=== PATIENT | female | born 1990 | race Caucasian/White ===

== ENCOUNTER 2020-11-22 21:57 | Observation (INO) ==
[2020-11-23] MEDS ORDERED: SODIUM CHLORIDE 0.9% 1000ML 1,000 ML IV ONE (00:18)
[2020-11-23] MEDS ORDERED: AMPICILLIN/SULBACTAM SOD 3,000 MG in 0.9 % SODIUM CHLORIDE 100 ML IV STA (00:18)
[2020-11-23] MEDS ORDERED: MoRPHine SULFATE 4 MG/ML 1 ML CARP\\VIAL IV STA ×2 (00:18→02:22)
[2020-11-23 00:48] LABS: Basophils # (auto) 0.01 K/uL (0-0.2); Basophils % (auto) 0.1 %; Eosinophils % (auto) 0.6 %; Hematocrit (blood only) 32.9 % (37-47); Hemoglobin 10.8 g/dL (12.0-16.0); Immature Granulocytes # (auto) 0.03 K/uL (0.00-0.02); Immature Granulocytes % (auto) 0.2 %; Lymphocytes # (auto) 1.84 K/uL (1.2-3.4); Lymphocytes % (auto) 11.8 %; Mean Corpuscular Hemoglobin 27.8 pg (25-34); Mean Corpuscular Hgb Conc 32.8 g/dL (32-36); Mean Corpuscular Volume 84.8 fL (80-100); Mean Platelet Volume 9.3 fL (7.4-10.4); Monocytes % (auto) 8.3 %; Neutrophils # (auto) 12.37 K/uL (1.4-6.5); Platelet Count 339 K/uL (130-400); RDW Coefficient of Variation 15.8 % (11.5-14.5); RDW Standard Deviation 49.2 fL (36.4-46.3); Red Blood Count 3.88 M/uL (4.2-5.4); White Blood Count 15.65 K/uL (4.8-10.8)
[2020-11-23 01:06] LABS: Albumin Level 4.2 gm/dl (3.4-5.0); BUN Creatinine Ratio 20.8 (10-20); Creatinine Clr Calc Pharmacy 166.8 ml/min; Est GFR (African American) 149.6 ml/min; Est GFR (Non-African American) 129.1 ml/min; Potassium 3.6 mmol/L (3.5-5.1)
[2020-11-23 01:08] LABS: Albumin Globulin Ratio 1.2 (0.9-2); Bilirubin,Total 0.5 mg/dl (0.2-1); Globulin 3.6 gm/dl (2.5-4.0); Total Protein 7.8 gm/dl (6.4-8.2)
[2020-11-23] MEDS ORDERED: OPTIRAY 320 100ml IV ONE (02:01)
[2020-11-23] MEDS ORDERED: ONDANSETRON INJ 2 MG/ML 2 ML VIAL IV STA (03:17)
--- NOTE | 2020-11-23 03:32 | History & Physical Report ---
Date of Service November 23, 2020 Assessment & Plan (1) Dental abscess: Plan: Dental abscess/cellulitis and abscess of left side of face and mandible- NPO continue Unasyn 3 g IV every 6 hours begun in ED famotidine 20 mg IV every 12 hours acetaminophen 1 g IV every 8 hours as needed mild pain or fever Zofran 4 mg IV every 6 hours as needed NSS + KCl 20 mEq at 80 mils per hour consult maxillofacial surgery Dr. Gruber (2) Cellulitis and abscess of face: Plan: See above History of Present Illness Chief Complaint: The patient presents to the emergency department with worsening painful swelling of the left side of her face over the past 24 hours Primary Care Provider: NO PCP The patient is a 30-year-old female with no significant past medical history who presents to the emergency department as noted above. Work-up in the emergency department included a CT scan of the face which showed cellulitis with an abscess. Past Med/Surg History Social History Smoking Status: Former smoker Feels Safe at Home: Yes Review of Systems Review of Systems: The patient denies chest pain, palpitations, shortness of breath, dyspnea on exertion, cough, lower extremity swelling, sore throat, fevers, chills, sweats, diarrhea , constipation, abdominal pain, pelvic pain, blood in urine or stool, dysuria, urinary frequency or urgency, lightheadedness, dizziness, headache, memory loss, loss of consciousness, rash, abnormal bruising or bleeding, imbalance, focal or generalized weakness, numbness or tingling in arms or legs, generalized arthralgias or myalgias, back or neck pain, or night sweats. The review of systems is otherwise negative other than for that already noted above, and at least 10 systems have been reviewed. Physical Exam Physical Exam: The patient is awake, alert and oriented 3, well developed and well nourished, normocephalic and atraumatic, lying in bed and in no acute distress. HEENT--PERRL, EOMI, mucous membranes and oropharynx dry. Large swelling left lateral mandibular area Neck--supple. No JVD. No bruits. Thyroid normal, trachea midline, no adenopathy. Heart--normal S1 and S2. No murmurs, rubs or gallops. Lungs--clear bilaterally, no respiratory distress, no accessory muscle use. Abdomen--normal bowel sounds and soft. Nontender. Nondistended, no hernias or masses, no organomegaly. Extremities--no cyanosis or clubbing. No edema. Dermatologic--normal skin turgor, normal color, no abnormal lymph nodes, no rash. Neurologic--cranial nerves II through XII grossly intact. Rheumatologic--normal range of motion. Psychiatric--normal affect. Results & Data Results & Data ([facility]) Vital Signs (Past 12 Hours) Vital Signs Temp Pulse Pulse Resp BP BP Pulse Ox 11/23/20 03:26 77 17 127/82 98 11/23/20 02:31 103 H 134/97 98 11/23/20 02:01 82 130/83 100 11/23/20 00:50 65 99 11/22/20 22:03 97.5 F L 105 H 18 143/89 H 99 Laboratory Results Laboratory Results WBC 15.65 K/uL (4.8-10.8) H 11/23/20 00:31 RBC 3.88 M/uL (4.2-5.4) L 11/23/20 00:31 Hgb 10.8 g/dL (12.0-16.0) L 11/23/20 00:31 Hct 32.9 % (37-47) L 11/23/20 00:31 MCV 84.8 fL (80-100) 11/23/20 00:31 MCH 27.8 pg (25-34) 11/23/20 00:31 MCHC 32.8 g/dL (32-36) 11/23/20 00:31 RDW Std Deviation 49.2 fL (36.4-46.3) H 11/23/20 00:31 RDW Coeff of Hugo 15.8 % (11.5-14.5) H 11/23/20 00:31 Plt Count 339 K/uL (130-400) 11/23/20 00:31 MPV 9.3 fL (7.4-10.4) 11/23/20 00:31 Immature Gran % (Auto) 0.2 % 11/23/20 00:31 Neut % (Auto) 79.0 % 11/23/20 00:31 Lymph % (Auto) 11.8 % 11/23/20 00:31 Luna % (Auto) 8.3 % 11/23/20 00:31 Eos % (Auto) 0.6 % 11/23/20 00:31 Baso % (Auto) 0.1 % 11/23/20 00:31 Neut # (Auto) 12.37 K/uL (1.4-6.5) H 11/23/20 00:31 Lymph # (Auto) 1.84 K/uL (1.2-3.4) 11/23/20 00:31 Luna # (Auto) 1.30 K/uL (0.11-0.59) H 11/23/20 00:31 Eos # (Auto) 0.10 K/uL (0-0.5) 11/23/20 00:31 Baso # (Auto) 0.01 K/uL (0-0.2) 11/23/20 00:31 Immature Gran # (Auto) 0.03 K/uL (0.00-0.02) H 11/23/20 00:31 Sodium 140 mmol/L (136-145) 11/23/20 00:31 Potassium 3.6 mmol/L (3.5-5.1) 11/23/20 00:31 Chloride 106 mmol/L (98-107) 11/23/20 00:31 Carbon Dioxide 28 mmol/L (21-32) 11/23/20 00:31 Anion Gap 6.0 (3-11) 11/23/20 00:31 BUN 11 mg/dl (7-18) 11/23/20 00:31 Creatinine 0.52 mg/dl (0.6-1.2) L 11/23/20 00:31 Est Cr Clr Drug Dosing 166.8 ml/min 11/23/20 00:31 Est GFR ( Amer) 149.6 ml/min 11/23/20 00:31 Est GFR (Non-Af Amer) 129.1 ml/min 11/23/20 00:31 BUN/Creatinine Ratio 20.8 (10-20) H 11/23/20 00:31 Glucose 97 mg/dl (70-99) 11/23/20 00:31 Lactate 0.8 mmol/L (0.4-2.0) 11/23/20 00:31 Calcium 9.0 mg/dl (8.5-10.1) 11/23/20 00:31 Total Bilirubin 0.5 mg/dl (0.2-1) 11/23/20 00:31 AST 14 U/L (15-37) L 11/23/20 00:31 ALT 18 U/L (12-78) 11/23/20 00:31 Alkaline Phosphatase 39 U/L (45-117) L 11/23/20 00:31 Total Protein 7.8 gm/dl (6.4-8.2) 11/23/20 00:31 Albumin 4.2 gm/dl (3.4-5.0) 11/23/20 00:31 Globulin 3.6 gm/dl (2.5-4.0) 11/23/20 00:31 Albumin/Globulin Ratio 1.2 (0.9-2) 11/23/20 00:31 COVID-19 Eval Order Covid19 at [facility] 11/23/20 03:00 SARS-CoV-2 (PCR) NEGATIVE (Negative) 11/23/20 03:00 Diagnostic Findings [facility] Patient: ANGELICA APPLE (Female) : 89 Status: ER Date: 11/23/20 02:03 Room #: History: PAIN AND SWELLING AT LEFT SIDE OF FACE, ABSCESS Slices: [phone] Priors: Tech: Lorenzo Tirado @ [phone] Exams: CT FACIAL Contrast: IV Amt: 93 ML OPTIRAY 320 Accession Numbers: [id number] Referring Physician: REFERRED SELF Preliminary Findings Only See Final Report For Complete Findings CT FACIAL: No prior exam for comparison. There is soft tissue swelling along the left mandible. There are no destructive changes of the mandible to suggest osteomyelitis. There is lucency surrounding the root of a molar tooth which may indicate a tooth abscess. There is a fluid collection at the left anterior mandible measuring approximately 1.8 cm x 0.8 cm with mild wall enhancement suggestive of early abscess. Bilateral submandibular lymphadenopathy. Mild lymphadenopathy in the carotid sheath region. Bilateral globes and intraconal region of the orbits are normal. Normal bilateral paranasal sinuses and mastoids. Radiologist: Priscila Jones MD Study ready at 02:06 and initial results transmitted at 03:12 Communications: Clear Time Type Notes 11/23/20 03:16 Call Doctor Regarding Other, called Dr. Yi on 11/23 03:15 (- 04:00) *This report constitutes a preliminary interpretation only. Non-acute findings f elt to be unrelated to the clinical presentation may not be discussed in this report. The study will be interpreted and a final report will be generated by the local Radiologist the following shift. To reach the hospital radiology department call [phone]. If a discrepancy is found between the preliminary and final interpretations of this study, please notify us via our Client Portal at [email or web address] under QA Exams.You can also fax this report with a description of the discrepancy, or include the final report, to our daytime fax number [phone].If faxing, please indicate the severity of discrepancy using one of the following categories: [ ] 1 - Agree/Informational [ ] 2 - Unlikely to Affect Management [ ] 3 - Possible Eventual Change of Management [ ] 4 - Probable Immediate Change of Management For all other patient related information, please fax us at [phone]. [id number] Code Status & VTE Plan Code Status Full code VTE Prophylaxis Plan VTE Prophylaxis will be ordered: Yes PG Care Time/CCT Total # of Minutes Spent Total Time Spent with Patient: Total time spent is greater than 50% in coordination of care (as documented) at patient's floor/unit and/or counseling patient: Coding Level of Care Code 92428 Initial Inpt Care Lvl 2 Diagnoses Dental abscess K04.7 Cellulitis and abscess of face L03.211; L02.01
--- NOTE | 2020-11-23 05:51 | Emergency Department Note ---
History of Present Illness General Chief complaint: Facial Injury/Pain Stated complaint: LEFT SIDE OF FACE SWOLLEN, ABCESS TOOTH Time Seen by Provider: 11/22/20 23:56 Source: patient Mode of arrival: ambulatory Limitations: no limitations History of Present Illness Maximum Pain Intensity: 4 This patient is a 30-year-old female who presents to the emergency department for evaluation of left-sided facial swelling/pain. Patient states that a few days ago, she developed some pain in the left lower molars. She has a broken tooth on that side. She states that she just got off of a 16-hour shift and during her shift, she had developed facial swelling which worsened progressively. She feels like the swelling is going down into her neck. She reports some pain with swallowing. She has tried cold compresses, ibuprofen and Tylenol without improvement. She rates her discomfort an 8/10. She states she has had a temperature of 100 F. She denies difficulty breathing. Home Medications Medication Instructions Recorded Confirmed Type amoxicillin 875 mg-potassium 1 tab PO Q12H #20 tab 11/24/20 Rx clavulanate 125 mg tablet chlorhexidine gluconate 0.12 % 15 ml MT BID 7 Days #118 ml 11/24/20 Rx mouthwash hydrocodone 5 mg-acetaminophen 325 1 tab PO Q4H PRN #14 tab 11/24/20 Rx mg tablet ondansetron HCl 8 mg tablet 8 mg PO Q8H PRN #10 tab 11/24/20 Rx Allergies Allergy/AdvReac Type Severity Reaction Status Date / Time No Known Allergies Allergy Unverified 11/23/20 06:32 Past Med/Surg History Medical History No significant past medical history Social History Smoking Status: Former smoker Hx Alcohol Use: Yes Hx Substance Use: No Preferred Language: Bengali Communication Ability: Effective Loop Sewer Required: No Beliefs That Will Affect Care: None Current Living Situation: Spouse and Family Feels Safe at Home: Yes Assistive Devices: None Review of Systems A total of 10 systems reviewed and were otherwise negative Physical Exam Vital Signs Vital Signs - 24 hr 11/22/20 22:03 11/23/20 00:50 11/23/20 02:01 Temperature 36.4 C L Temperature Source Temporal Artery Scan Pulse Rate 105 H Pulse Rate [Finger] 65 82 Pulse Rate from SpO2 Sensor Pulse Rhythm [Finger] Pulse Strength [Finger] Respiratory Rate 18 Respiratory Effort / Characteristics Non-Labored Respiratory Depth Normal Respiratory Pattern Blood Pressure 143/89 H Blood Pressure [Left Arm] 130/83 Blood Pressure Mean 107 Blood Pressure Mean [Left Arm] 98 Blood Pressure Position [Left Arm] Pulse Oximetry 99 99 100 Oxygen Delivery Method Room Air Room Air Room Air Sepsis Recent Fever Within 48 Hours No Sepsis New/Unexplained Change in Mental Status No Sepsis Action Taken by Nursing No Action Required 11/23/20 02:31 11/23/20 03:26 11/23/20 04:00 Temperature Temperature Source Pulse Rate 89 Pulse Rate [Finger] 103 H 77 Pulse Rate from SpO2 Sensor 88 Pulse Rhythm [Finger] Regular Pulse Strength [Finger] Normal Respiratory Rate 17 Respiratory Effort / Characteristics Respiratory Depth Normal Respiratory Pattern Regular Blood Pressure 124/72 Blood Pressure [Left Arm] 134/97 127/82 Blood Pressure Mean 89 Blood Pressure Mean [Left Arm] 109 97 Blood Pressure Position [Left Arm] Lying Pulse Oximetry 98 98 98 Oxygen Delivery Method Room Air Room Air Sepsis Recent Fever Within 48 Hours Sepsis New/Unexplained Change in Mental Status Sepsis Action Taken by Nursing 11/23/20 05:00 11/23/20 05:39 Temperature Temperature Source Pulse Rate 76 72 Pulse Rate [Finger] Pulse Rate from SpO2 Sensor 76 Pulse Rhythm [Finger] Pulse Strength [Finger] Respiratory Rate 18 Respiratory Effort / Characteristics Respiratory Depth Respiratory Pattern Blood Pressure 111/68 109/60 Blood Pressure [Left Arm] Blood Pressure Mean 82 76 Blood Pressure Mean [Left Arm] Blood Pressure Position [Left Arm] Pulse Oximetry 98 98 Oxygen Delivery Method Room Air Sepsis Recent Fever Within 48 Hours Sepsis New/Unexplained Change in Mental Status Sepsis Action Taken by Nursing VITALS: Vitals are noted on the nurse's note and reviewed by myself. GENERAL: This is a 30-year-old female, in no acute distress, well-developed well-nourished. SKIN: The skin was without rashes. EARS: External auditory canals clear, tympanic membranes pearly gaffney without erythema or effusion bilaterally. EYES: Pupils equal round and reactive to light and accommodation. NOSE: Patent, turbinates without inflammation or discharge. MOUTH: Mucous membranes moist. Poor dentition noted. There is a fractured left lower molar with surrounding gum edema. Significant edema noted to the left mandible. Tenderness to palpation of the left mandible. NECK: Supple without nuchal rigidity. Left cervical lymphadenopathy noted. HEART: Regular rate and rhythm without murmurs gallops or rubs. LUNGS: Clear to auscultation bilaterally without wheezes, rales or rhonchi. NEURO: Patient was alert and oriented to person place and time. Course Consultations Consultation #1: Dr. Lopez [facility] hospitalist Administered Medications Discontinued Medications Bupivacaine HCl (Bupivacaine/Epinephrine 0.5% 1:200,000 1.8 Ml Carp) Confirm Administered Dose 18 ml .ROUTE .STK-MED ONE Stop: 11/23/20 15:50 Last Admin: 11/23/20 17:03 Dose: 5.4 ml Documented by: [id number] Chlorhexidine Gluconate (Chlorhexidine Gluconate 0.12% 480 Ml) 15 ml MT BID PRN PRN Reason: Headache or Pain Stop: 12/23/20 12:26 Last Admin: 11/23/20 13:45 Dose: 15 ml Documented by: [id number] Chlorhexidine Gluconate (Chlorhexidine Gluconate 0.12% 480 Ml) 15 ml MT ONCE ONE Stop: 11/23/20 16:57 Last Admin: 11/23/20 16:56 Dose: 50 ml Documented by: [id number] Fentanyl Citrate (Fentanyl Citrate 100 Mcg/2 Ml Vial) 50 mcg IV Q5M PRN PRN Reason: PACU Use Only-Pain Stop: 11/24/20 00:15 Last Admin: 11/23/20 17:22 Dose: 50 mcg Documented by: [id number] Admin: 11/23/20 17:17 Dose: 50 mcg Documented by: [id number] Ampicillin Sodium/Sulbactam Sodium 3,000 mg/ Sodium Chloride 108 mls @ 200 mls/hr IV NOW STA; Protocol Stop: 11/23/20 00:50 Last Infusion: 11/23/20 01:57 Dose: 0 mls/hr Documented by: [id number] Admin: 11/23/20 00:59 Dose: 200 mls/hr Documented by: [id number] Sodium Chloride (Nss 1000ml) 1,000 mls @ 999 mls/hr IV .Q1H1M ONE Stop: 11/23/20 01:18 Last Infusion: 11/23/20 01:57 Dose: 0 mls/hr Documented by: [id number] Admin: 11/23/20 00:44 Dose: 999 mls/hr Documented by: [id number] Ampicillin Sodium/Sulbactam Sodium 3,000 mg/ Sodium Chloride 108 mls @ 200 mls/hr IV Q6H [facility]; Protocol Stop: 12/03/20 03:30 Last Infusion: 11/24/20 06:20 Dose: 0 mls/hr Documented by: [id number] Admin: 11/24/20 05:44 Dose: 200 mls/hr Documented by: [id number] Infusion: 11/24/20 01:00 Dose: 0 mls/hr Documented by: [id number] Admin: 11/24/20 00:09 Dose: 200 mls/hr Documented by: [id number] Infusion: 11/23/20 19:13 Dose: 0 mls/hr Documented by: [id number] Admin: 11/23/20 18:05 Dose: 200 mls/hr Documented by: [id number] Infusion: 11/23/20 15:45 Dose: 0 mls/hr Documented by: [id number] Admin: 11/23/20 12:20 Dose: 200 mls/hr Documented by: [id number] Infusion: 11/23/20 10:28 Dose: 0 mls/hr Documented by: [id number] Admin: 11/23/20 06:35 Dose: 200 mls/hr Documented by: [id number] Potassium Chloride/Sodium Chloride (Normal Saline W/20 Meq Kcl) 20 meq in 1,000 mls @ 80 mls/hr IV .[id number] MOLLY Stop: 12/23/20 06:09 Last Infusion: 11/24/20 07:40 Dose: 80 mls/hr Documented by: [id number] Infusion: 11/24/20 06:52 Dose: 0 mls/hr Documented by: [id number] Admin: 11/24/20 06:23 Dose: 80 mls/hr Documented by: [id number] Infusion: 11/24/20 06:23 Dose: 80 mls/hr Documented by: [id number] Admin: 11/23/20 18:45 Dose: 80 mls/hr Documented by: [id number] Infusion: 11/23/20 18:45 Dose: 80 mls/hr Documented by: [id number] Admin: 11/23/20 07:49 Dose: 80 mls/hr Documented by: [id number] Acetaminophen (Ofirmev) 1,000 mg in 100 mls @ 400 mls/hr IV Q8H PRN PRN Reason: Pain or Fever Stop: 11/26/20 06:09 Last Infusion: 11/23/20 14:11 Dose: 0 mls/hr Documented by: [id number] Admin: 11/23/20 13:30 Dose: 400 mls/hr Documented by: [id number] Infusion: 11/23/20 10:28 Dose: 0 mls/hr Documented by: [id number] Admin: 11/23/20 07:27 Dose: 400 mls/hr Documented by: [id number] Famotidine 20 mg/ Syringe 5 mls @ 2.5 mls/min IV Q12H MOLLY Stop: 12/23/20 06:09 Last Admin: 11/24/20 06:23 Dose: 2.5 mls/min Documented by: [id number] Admin: 11/23/20 18:44 Dose: 2.5 mls/min Documented by: [id number] Admin: 11/23/20 08:42 Dose: 2.5 mls/min Documented by: [id number] Ioversol (Optiray 320 100ml) 100 ml IV ONCE ONE Stop: 11/23/20 02:02 Last Admin: 11/23/20 02:02 Dose: 93 ml Documented by: [id number] Ketorolac Tromethamine (Ketorolac 30 Mg/Ml Vial) 30 mg IV Q6H PRN PRN Reason: Pain 1-10/15 Stop: 11/28/20 07:38 Last Admin: 11/23/20 10:32 Dose: 30 mg Documented by: [id number] Lidocaine/Epinephrine (Lidocaine 2%/Epinephrine 1:100,000 1.8 Ml Cartridge) Confirm Administered Dose 0 ml .ROUTE .STK-MED ONE Stop: 11/23/20 15:50 Last Admin: 11/23/20 17:02 Dose: Not Given Documented by: [id number] Morphine Sulfate (Morphine Sulfate 4 Mg/Ml 1 Ml Carp\Vial) 4 mg IV NOW STA Stop: 11/23/20 00:19 Last Admin: 11/23/20 00:45 Dose: 4 mg Documented by: [id number] Morphine Sulfate (Morphine Sulfate 4 Mg/Ml 1 Ml Carp\Vial) 4 mg IV NOW STA Stop: 11/23/20 02:23 Last Admin: 11/23/20 02:26 Dose: 4 mg Documented by: [id number] Morphine Sulfate (Morphine Sulfate 2 Mg/Ml Carp) 2 mg IV Q4 PRN PRN Reason: Pain 2-7 Stop: 12/07/20 07:38 Last Admin: 11/24/20 00:07 Dose: 2 mg Documented by: [id number] Admin: 11/23/20 19:32 Dose: 2 mg Documented by: [id number] Ondansetron HCl (Ondansetron Inj 2 Mg/Ml 2 Ml Vial) 4 mg IV NOW STA Stop: 11/23/20 03:18 Last Admin: 11/23/20 03:24 Dose: 4 mg Documented by: [id number] Oxycodone HCl (Oxycodone Hcl Ir 5 Mg Tab (Immediate Release)) 10 mg PO Q6H PRN PRN Reason: Moderate Pain 2-7 Stop: 12/07/20 07:38 Last Admin: 11/24/20 09:59 Dose: 10 mg Documented by: [id number] Medical Decision Making Differential Diagnosis Differential diagnosis includes dental caries, periapical abscess, facial cellulitis, Shiva's angina, pharyngitis, referred pain, among others. Home Medications Current Medication List: was personally reviewed by me Laboratory Data Attestation: I reviewed the patient's lab results. Result diagrams: 11/24/20 07:54 11/23/20 00:31 Lab Results 11/23/20 11/23/20 11/23/20 Range/Units 00:31 00:31 00:31 WBC 15.65 H (4.8-10.8) K/uL RBC 3.88 L (4.2-5.4) M/uL Hgb 10.8 L (12.0-16.0) g/dL Hct 32.9 L (37-47) % MCV 84.8 (80-100) fL MCH 27.8 (25-34) pg MCHC 32.8 (32-36) g/dL RDW Std Deviation 49.2 H (36.4-46.3) fL RDW Coeff of Hugo 15.8 H (11.5-14.5) % Plt Count 339 (130-400) K/uL MPV 9.3 (7.4-10.4) fL Immature Gran % (Auto) 0.2 % Neut % (Auto) 79.0 % Lymph % (Auto) 11.8 % [place] % (Auto) 8.3 % Eos % (Auto) 0.6 % Baso % (Auto) 0.1 % Neut # (Auto) 12.37 H (1.4-6.5) K/uL Lymph # (Auto) 1.84 (1.2-3.4) K/uL [place] # (Auto) 1.30 H (0.11-0.59) K/uL Eos # (Auto) 0.10 (0-0.5) K/uL Baso # (Auto) 0.01 (0-0.2) K/uL Immature Gran # (Auto) 0.03 H (0.00-0.02) K/uL Sodium 140 (136-145) mmol/L Potassium 3.6 (3.5-5.1) mmol/L Chloride 106 (98-107) mmol/L Carbon Dioxide 28 (21-32) mmol/L Anion Gap 6.0 (3-11) BUN 11 (7-18) mg/dl Creatinine 0.52 L (0.6-1.2) mg/dl Est Cr Clr Drug Dosing 166.8 ml/min Est GFR ( Amer) 149.6 ml/min Est GFR (Non-Af Amer) 129.1 ml/min BUN/Creatinine Ratio 20.8 H (10-20) Glucose 97 (70-99) mg/dl Lactate 0.8 (0.4-2.0) mmol/L Calcium 9.0 (8.5-10.1) mg/dl Total Bilirubin 0.5 (0.2-1) mg/dl AST 14 L (15-37) U/L ALT 18 (12-78) U/L Alkaline Phosphatase 39 L (45-117) U/L Total Protein 7.8 (6.4-8.2) gm/dl Albumin 4.2 (3.4-5.0) gm/dl Globulin 3.6 (2.5-4.0) gm/dl Albumin/Globulin Ratio 1.2 (0.9-2) COVID-19 Eval Order SARS-CoV-2 (PCR) (Negative) 11/23/20 11/23/20 Range/Units 03:00 03:00 WBC (4.8-10.8) K/uL RBC (4.2-5.4) M/uL Hgb (12.0-16.0) g/dL Hct (37-47) % MCV (80-100) fL MCH (25-34) pg MCHC (32-36) g/dL RDW Std Deviation (36.4-46.3) fL RDW Coeff of Hugo (11.5-14.5) % Plt Count (130-400) K/uL MPV (7.4-10.4) fL Immature Gran % (Auto) % Neut % (Auto) % Lymph % (Auto) % [place] % (Auto) % Eos % (Auto) % Baso % (Auto) % Neut # (Auto) (1.4-6.5) K/uL Lymph # (Auto) (1.2-3.4) K/uL [place] # (Auto) (0.11-0.59) K/uL Eos # (Auto) (0-0.5) K/uL Baso # (Auto) (0-0.2) K/uL Immature Gran # (Auto) (0.00-0.02) K/uL Sodium (136-145) mmol/L Potassium (3.5-5.1) mmol/L Chloride (98-107) mmol/L Carbon Dioxide (21-32) mmol/L Anion Gap (3-11) BUN (7-18) mg/dl Creatinine (0.6-1.2) mg/dl Est Cr Clr Drug Dosing ml/min Est GFR ( Amer) ml/min Est GFR (Non-Af Amer) ml/min BUN/Creatinine Ratio (10-20) Glucose (70-99) mg/dl Lactate (0.4-2.0) mmol/L Calcium (8.5-10.1) mg/dl Total Bilirubin (0.2-1) mg/dl AST (15-37) U/L ALT (12-78) U/L Alkaline Phosphatase (45-117) U/L Total Protein (6.4-8.2) gm/dl Albumin (3.4-5.0) gm/dl Globulin (2.5-4.0) gm/dl Albumin/Globulin Ratio (0.9-2) COVID-19 Eval Order Covid19 at [facility] SARS-CoV-2 (PCR) NEGATIVE (Negative) Imaging Data Attestation: I personally reviewed and interpreted this imaging study as follows: Radiologist's Impression: CT FACIAL: No prior exam for comparison. There is soft tissue swelling along the left mandible. There are no destructive changes of the mandible to suggest osteomyelitis. There is lucency surrounding the root of a molar tooth which may indicate a tooth abscess. There is a fluid collection at the left anterior mandible measuring approximately 1.8 cm x 0.8 cm with mild wall enhancement suggestive of early abscess. Bilateral submandibular lymphadenopathy. Mild lymphadenopathy in the carotid sheath region. Bilateral globes and intraconal region of the orbits are normal. Normal bilateral paranasal sinuses and mastoids. Radiologist: Priscila Jones MD MDM Narrative This patient is a 30-year-old female who presents to the emergency department for evaluation of dental pain and facial swelling. Patient has had a fairly rapid onset of facial swelling over the past [address] was performed and does show a facial cellulitis with a small early abscess. Given the extent of the patient's infection, I did advise a stay in the hospital. Patient was agreeable to this. [facility] for further care. Patient was given IV pain medication as well as IV Unasyn. Impression & Plan Cellulitis and abscess of face Discharge Plan Visit Data Chief Complaint: Facial Injury/Pain Stated Complaint: LEFT SIDE OF FACE SWOLLEN, ABCESS TOOTH ED Provider: Kurtis Kay ED Midlevel Provider: Estrellita Solis Discharge Problem: Cellulitis and abscess of face Patient Disposition: Admitted As Inpatient Condition: Good Discharge Instructions Interventions: ED Discharge Assessment Last Done: 11/23/20 05:44
[2020-11-23] MEDS ORDERED: ONDANSETRON INJ 2 MG/ML 2 ML VIAL IV PRN ×2 (06:10→16:15)
[2020-11-23] MEDS ORDERED: ACETAMINOPHEN 325 MG TAB PO PRN (06:10)
[2020-11-23] MEDS: AMPICILLIN/SULBACTAM SOD 3,000 MG in 0.9 % SODIUM CHLORIDE 100 ML IV SCH ×3 (06:35→18:05)
[2020-11-23] MEDS: ACETAMINOPHEN 1,000 MG/100 ML VIAL IV PRN ×2 (07:27→13:30)
[2020-11-23] MEDS ORDERED: oxyCODONE HCL IR 5 MG TAB (IMMEDIATE RELEASE) PO PRN ×2 (07:39→08:27)
[2020-11-23] MEDS ORDERED: MoRPHine SULFATE 4 MG/ML 1 ML CARP\\VIAL IV PRN ×2 (07:39→08:27)
[2020-11-23] MEDS ORDERED: KETOROLAC 30 MG/ML VIAL IV PRN ×2 (07:39→08:27)
[2020-11-23] MEDS ORDERED: MoRPHine SULFATE 2 MG/ML CARP IV PRN (07:39)
--- NOTE | 2020-11-23 07:40 | Hospitalist Progress Note ---
Date of Service November 23, 2020 Assessment & Plan (1) Dental abscess: Plan: Dental abscess/cellulitis and abscess of left side of face and mandible- NPO continue Unasyn 3 g IV every 6 hours begun in ED famotidine 20 mg IV every 12 hours acetaminophen 1 g IV every 8 hours as needed mild pain or fever Zofran 4 mg IV every 6 hours as needed NSS + KCl 20 mEq at 80 mils per hour consult maxillofacial surgery Dr. Gruber (2) Cellulitis and abscess of face: Plan: See above Admission and Anticipated Discharge Date Admission Date: November 23, 2020 Subjective Patient seen pain control her facial swelling is significantly present there are some cervical lymph nodes also present on the left Results & Data Results & Data ([facility]) Vital Signs (Past 12 Hours) Vital Signs Temp Pulse Pulse Resp BP BP BP 11/23/20 06:22 99.5 F 88 16 123/81 11/23/20 05:39 72 18 109/60 11/23/20 05:00 76 111/68 11/23/20 04:00 89 124/72 11/23/20 03:26 77 17 127/82 11/23/20 02:31 103 H 134/97 11/23/20 02:01 82 130/83 11/23/20 00:50 65 11/22/20 22:03 97.5 F L 105 H 18 143/89 H Pulse Ox 11/23/20 06:22 97 11/23/20 05:39 98 11/23/20 05:00 98 11/23/20 04:00 98 11/23/20 03:26 98 11/23/20 02:31 98 11/23/20 02:01 100 11/23/20 00:50 99 11/22/20 22:03 99 PG Care Time/CCT Total # of Minutes Spent Total Time Spent with Patient: Total time spent is greater than 50% in coordination of care (as documented) at patient's floor/unit and/or counseling patient: Coding Level of Care Code None Diagnoses Dental abscess K04.7 Cellulitis and abscess of face L03.211; L02.01
[2020-11-23] MEDS: NSS + 20MEQ KCL 20 MEQ/1,000 ML BAG IV SCH ×2 (07:49→18:45)
[2020-11-23] MEDS: FAMOTIDINE 20 MG in SYRINGE 3 ML IV SCH ×2 (08:42→18:44)
--- NOTE | 2020-11-23 09:12 | CT Scan Report ---
CT facial bones w con CT DOSE: 153.27 mGy.cm CLINICAL HISTORY: left facial swelling, abscess TECHNIQUE: The patient was scanned in a dynamic helical fashion during intravenous administration of 93 cc of Optiray 320 A dose lowering technique was utilized adhering to the principles of ALARA. COMPARISON STUDY: None. FINDINGS: No mucosal space masses are visualized. There are no necrotic neck nodes. Mildly prominent cervical lymph nodes are likely reactive. There is a left-sided perimandibular soft tissue edema. There is fluid present within the left jayne lateral premaxillary soft tissues. This is consistent with phlegmonous change versus an early abscess . There is poor dentition with multiple dental caries. There are bilateral dental apical abscesses. IMPRESSION: 1. Left perimandibular soft tissues edema 2. Fluid present within the left anterior premaxillary soft tissues consistent with phlegmonous linn e versus an early abscess 3. Poor dentition with multiple dental caries, and bilateral dental apical abscesses 4. Mild cervical lymphadenopathy, likely reactive. ACT 112: Negative or not required by law. Electronically signed by: Schuyler Grullon M.D. 11/23/2020 9:11 AM
[2020-11-23] MEDS ORDERED: CHLORHEXIDINE GLUCONATE 0.12% 480 ML MT PRN (12:27)
--- NOTE | 2020-11-23 15:11 | Anesthesiology Consultation ---
Date of Service November 23, 2020 Assessment & Plan (1) Encounter for pre-operative examination: Chart Review Chart Review: Acceptable Risk for Surgery and Patient NOT seen in Pre Admission Testing Consults Requested none History Surgery Operation Date: 11/23/20 08:20 Proposed Procedures p Left Incision and Drainage Submandibular Area - Tyler Gruber, JADEN s Extraction 3, 14, and 19 - Tyler Gruber, DMD Height/Weight Height: 5 ft 9 in Weight: 71.9 kg Allergies Allergy/AdvReac Type Severity Reaction Status Date / Time No Known Allergies Allergy Unverified 11/23/20 06:32 Medications Active Medications Generic Name Dose Route Start Last Admin Trade Name Freq PRN Reason Stop Dose Admin Chlorhexidine Gluconate 15 ml 11/23/20 12:27 11/23/20 13:45 Chlorhexidine Gluconate 0.12% 480 Ml MT 12/23/20 12:26 15 ml BID PRN Administration Headache or Pain Ampicillin Sodium/Sulbactam 108 mls @ 200 mls/hr 11/23/20 03:31 11/23/20 12:20 Sodium 3,000 mg/ Sodium IV 12/03/20 03:30 200 mls/hr Chloride Q6H MOLLY Administration Protocol Potassium Chloride/Sodium Chloride 20 meq in 1,000 mls @ 80 mls/hr 11/23/20 06:10 11/23/20 07:49 Normal Saline W/20 Meq Kcl IV 12/23/20 06:09 80 mls/hr .[id number] MOLLY Administration Acetaminophen 1,000 mg in 100 mls @ 400 mls/hr 11/23/20 06:10 11/23/20 14:11 Ofirmev IV 11/26/20 06:09 Infused Q8H PRN Infusion Pain or Fever Famotidine 20 mg/ Syringe 5 mls @ 2.5 mls/min 11/23/20 06:10 11/23/20 08:42 IV 12/23/20 06:09 2.5 mls/min Q12H MOLLY Administration Ketorolac Tromethamine 30 mg 11/23/20 08:27 11/23/20 10:32 Ketorolac 30 Mg/Ml Vial IV 11/28/20 07:38 30 mg Q6H PRN Administration Pain 1-6/10 Past Medical History Medical History No significant past medical history Social History Smoking Status: Former smoker Hx Alcohol Use: Yes alcohol intake frequency: holidays/special occasions only Hx Substance Use: No Physical Exam Vital Signs Last Vital Signs Temp 36.8 C 11/23/20 14:56 Pulse 70 11/23/20 14:56 Resp 16 11/23/20 14:56 BP 109/67 11/23/20 14:56 Pulse Ox 100 11/23/20 14:56 Testing Laboratory Results 11/23/20 00:31 11/23/20 00:31
[2020-11-23] MEDS ORDERED: PROPOFOL IV EMULSION 10 MG/ML 20 ML VIAL IV ONE (15:28)
[2020-11-23] MEDS ORDERED: NEOSTIGMINE METHYLSULFATE 1 MG/ML 10ML VIAL ONE (15:28)
[2020-11-23] MEDS ORDERED: GLYCOPYRROLATE 0.2 MG/ML VIAL ONE (15:28)
[2020-11-23] MEDS ORDERED: fentaNYL citrate 100 MCG/2 ML VIAL ONE (15:28)
[2020-11-23] MEDS ORDERED: MIDAZOLAM HCL 1 MG/ML 2ML VIAL ONE (15:28)
[2020-11-23] MEDS ORDERED: DEXAMETHASONE SOD INJ 4 MG/ML VIAL ONE (15:28)
[2020-11-23] MEDS ORDERED: ONDANSETRON INJ 2 MG/ML 2 ML VIAL ONE (15:28)
[2020-11-23] MEDS ORDERED: LIDOCAINE 2% 2 ML VIAL/AMP(20MG/ML) INFIL ONE (15:28)
[2020-11-23] MEDS ORDERED: LIDOCAINE 2% JELLY 5 ML TUBE ONE (15:30)
[2020-11-23] MEDS ORDERED: OXYMETAZOLINE 0.05% 30 ML BTL ONE (15:30)
[2020-11-23 15:44] LABS: Pregnancy Test, Urine Negative (Negative)
[2020-11-23] MEDS ORDERED: LIDOCAINE 2%/EPINEPHRINE 1:100,000 1.8 ML CARTRIDGE ONE (15:49)
[2020-11-23] MEDS ORDERED: BUPIVACAINE/EPINEPHRINE 0.5% 1:200,000 1.8 ML CARP ONE (15:49)
--- NOTE | 2020-11-23 16:12 | Oral/Maxillofacial Consult ---
Date of Consultation November 23, 2020 Oral Maxillofacial Surgery Exam Present Complaint: Chart reviewed for PMH and current meds I have pain/swelling/drainage from my infected teeth. Symptoms have been ongoing for a while they would come and go. Now swollen and difficulty swallowing Oral Exam: Finding--Swollen and tender gingival tissue with deep pocket formation.Teeth are in an abnormal position and removal is clinical indicated. There is a moderate amount of left submandibular swelling extending to the midline, it is red and hot. Intraoral is grossly swollen on both the facial and the Floor of the mouth. Imaging: There is a left-sided perimandibular soft tissue edema. There is fluid present within the left anterolateral premaxillary soft tissues. This is consistent with phlegmonous change versus an early abscess. There is poor dentition with multiple dental caries. There are bilateral dental apical abscesses. IMPRESSION: 1. Left perimandibular soft tissues edema 2. Fluid present within the left anterior premaxillary soft tissues consistent with phlegmonous change versus an early abscess 3. Poor dentition with multiple dental caries, and bilateral dental apical abscesses 4. Mild cervical lymphadenopathy, likely reactive.` Soft tissue: floor of the mouth is swollen secondly to the abscessed # 18 tooth as well as the # 14 tooth. tongue is all WNL , \There is swollen also in the left hard/soft palate and posterior pharyngeal area secondary from infection spread. Oral Care: Overall oral care is fair Occlusion: Class I missing many teeth TMJ exam: No pop, clicking, pain, good ROM, No history of TMJ injury or dysfunction Periodontal exam: Mild periodontal disease and gross swelling upper/lower swelling from infected teeth. Head/Neck exam: FROM, Able to extend and flex neck w/o difficulty, no airway issues, Left submandibular swelling from infection spread from upper and lower fractured and grossly decayed teeth 14/18 Treatment Plan: Set up with general anesthesia in hospital due to complexity of the procedure I&D left submandibular and floor of mouth with retromandibular space Extraction of teeth 3,14,18 I reviewed the treatment plan and consent with the patient . Understanding was expressed. Time was given for questions regarding the surgery, risks and post op care. Discussed alternative to treatment--procedure as planned, Do not do surgery The infected teeth are grossly fractured/decayed and in an abnormal position, removal is indicated and medically necessary. The following teeth are decayed and fractured and removal is indicated MATT:3,14,18 Risks discussed: Bleeding,Pain,swelling,infection, dry socket, delayed healing, nerve injury to face,lips,tongue,chin area which could be permanent (rare). TMJ, jaw stiffness, change in bite (rare), ear pain (referred). Sinus problems like fistula or infection. Need to leave a small root fragment in place to avoid injury to nerve or sinus. Relationship of teeth to nerve/sinus and risk of jaw fracture. Home care reviewed: tooth brushing, rinsing, follow up care with Dr Gruber. diet=[id number] dental. Discussed activity level, driving/work while on Rx pain Meds. Surgery to be set up today at 4 pm Assessment & Plan (1) Cellulitis and abscess of face: (2) Dental abscess: History of Present Illness Attending Physician: Colt Palmer MD Allergies Allergy/AdvReac Type Severity Reaction Status Date / Time No Known Allergies Allergy Unverified 11/23/20 06:32 Patient History Medical History No significant past medical history Social History Smoking Status: Former smoker Hx Alcohol Use: Yes Hx Substance Use: No Preferred Language: Greenlandic Communication Ability: Effective Supervisor [employer] Required: No Beliefs That Will Affect Care: None Current Living Situation: Spouse and Family Feels Safe at Home: Yes Assistive Devices: None Results & Data ([facility]) Vital Signs (Past 12 Hours) Vital Signs Temp Pulse Pulse Resp BP BP Pulse Ox 11/23/20 15:54 36.8 C 93 H 16 128/77 100 11/23/20 14:56 36.8 C 70 16 109/67 100 11/23/20 06:22 37.5 C 88 16 123/81 97 11/23/20 05:39 72 18 109/60 98 11/23/20 05:00 76 111/68 98 PG Care Time/CCT Total # of Minutes Spent Total Time Spent with Patient: Total time spent is greater than 50% in coordination of care (as documented) at patient's floor/unit and/or counseling patient: Coding Level of Care Code 51852 Office/OBS Consult Lvl 3 Diagnoses Cellulitis and abscess of face L03.211; L02.01 Dental abscess K04.7
[2020-11-23] MEDS ORDERED: ATROPINE SULFATE 0.1 MG/ML 10ML SYR IV PRN (16:15)
[2020-11-23] MEDS ORDERED: ePHEDrine sulfate 50 MG/ML AMP IV PRN (16:15)
[2020-11-23] MEDS ORDERED: HYDROmorphone INJ 2 MG/ML SYR/VIAL IV PRN (16:15)
--- NOTE | 2020-11-23 16:15 | History & Physical Bridge Note ---
Date of Service November 23, 2020 History & Physical Bridge Note I have examined the patient, reviewed the History & Physical and in the interval since the performance of the History & Physical I have noted the following changes of clinical significance: no changes noted
[2020-11-23] MEDS ORDERED: ESMOLOL HCL INJ 10 MG/ML 10ML VIAL IV ONE (16:43)
[2020-11-23] MEDS ORDERED: ROCURONIUM BROMIDE 10 MG/ML 5 ML VIAL IV ONE (16:48)
[2020-11-23] MEDS ORDERED: CHLORHEXIDINE GLUCONATE 0.12% 480 ML MT ONE (16:56)
--- NOTE | 2020-11-23 17:08 | Post Operative Brief Note ---
PG Immediate Post Op with CF Date of Surgery November 23, 2020 Pre & Post Diagnosis Operation Date: 11/23/20 08:20 Pre-Op Diagnosis: Left Facial Abscess Post-Op Diagnosis: Left Facial Abscess I identified the patient and participated in the time-out.: Yes Procedure Operation Date: 11/23/20 08:20 Actual Procedures p Left Incision and Drainage Submandibular Area(Left) - Tyler Gruber DMD s Extraction 3, 14, and 19(Not Applicable) - Tyler Gruber DMD Surgeon Tyler Gruber DMD Hot Roller none Estimated Blood Loss 4 Findings Consistent with Post-Op Diagnosis Specimens Specimen Description: Culture 1. Left Mandibular Abscess
[2020-11-23] MEDS: fentaNYL citrate 100 MCG/2 ML VIAL IV PRN ×2 (17:17→17:22)
--- NOTE | 2020-11-23 17:19 | Operative Report ---
PG Post Operative Report Pre & Post Diagnosis Operation Date: 11/23/20 08:20 Pre-Op Diagnosis: Left Facial Abscess--submandibular, floor of mouth, buccal space(cheek-upper mucobuccal fold), grossly fractured/decayed # 14,19 and 30 Post-Op Diagnosis: Left Facial Abscess (same) I identified the patient and participated in the time-out.: Yes Procedure Left intraoral I&D of multiply facial space abscess due to abscessed # 14 and 19 L03.211 K12.2 K04.6 CPT 97475 upper CPT 06988 lower Operation Date: 11/23/20 08:20 Actual Procedures p Left Incision and Drainage Submandibular Area(Left) - Tyler Gruber DMD s Extraction 3, 14, and 19(Not Applicable) - Tyler Gruber DMD Once cleared for surgery general anesthesia was achieved, the eyes were protected by the anesthesia dept criteria.. A time out was take for patient ID, antibiotics, equipment and position dena ification once all agreed the procedure began. Local anesthesia was given into each area using Marcaine with a vasoconstrictor ( 1.8 ml per site). A throat pack was placed after the oral cavity was irrigated with saline. Once a surgical level of anesthesia was obtained and the local anesthesia was given time for the blocks the surgery was started. I turned my attention to the right side Actual Procedures p Incision and Drainage Submandibular Abscess/ floor of mouth left and vestibule upper left # 14 ; Removal of Tooth #14,19 and 30 (Not Applicable) - Tyler Montiel DMD Once cleared for surgery general anesthesia was achieved, the eyes were protected by the anesthesia dept criteria. A time out was take for patient ID, antibiotics, equipment and position verification once all agreed the procedure began. Local anesthesia using Marcaine with a vasoconstrictor ( 1.8 ml per site) given into right inferior alveolar nerve A throat pack was placed after the oral cavity was irrigated with saline. Once a surgical level of anesthesia was obtained and the local anesthesia was given time for the blocks the surgery was started. I turned my attention to the infection which was located in the floor of the mouth and submandibular/ upper vestibule area. The tongue was elevated and there was also swelling associated with tooth # 14,19 and 30 ( see CT scan report) Incision and Drainage left side Using a 15 blade an incision was made lateral to the alveolar ridge and medial to the duct of the submandibular gland. Once the incision was made a lot of pus extruded from the site. This drainage was cultured for anaerobic and aerobic bacteria. A curved hemostat was carefully placed into the infected space along the medial/lateral side of the lower jaw and into the submandibular, retromandibular spaces. Some further drainage was now allowed to escape. I palpated the chin and submental / submandibular area and no further drainage was expressed. The area was irrigated with at least 100 ml of NS solution. I now used the 15 blade and made a puncture in the swollen vestibular area adjacent the decayed/fractured # 14 Once the incision was made a lot of pus extruded from the site. A curved hemostat was carefully placed into the infected space along the medial/lateral side of the upper jaw andpalate into the cheek buccal spaces.Some further drainage was now allowed to escape I now turned my attention to removing teeth # 14 and #19 tooth. Lower # 19 this tooth was grossly infected with a deep carious lesion, There was a large radiolucent area at the apex. The full thick Muco-periosteal flap was made on the facial aspect from # 26-30. The flap was reflected to expose the the subperiosteal space the bone adjacent to # 19. The rongeur was used to remove bone, the tooth was removed with a 301 elevator, the mental nerve was intact, there was a large amount of granulation tissue on the apex and some more pus that was expressed. Upper abscessed tooth # 14 this tooth was flush to the bone An Incision was made over the tuberosity. The full thickness flap was reflected, bone removed with a rongeur, the tooth was visualized, it was close to the sinus and removed with an 81 elevator as the tooth was grossly fractured to the level of the bone. Upon removal pus drained from the facial and palatal flaps, The sinus was intact w/o any communications. I used a small hemostat to open up the tissues to insure no further pockets of pus were encountered. Bony margins were trimmed, smoothed and sutured closed with a 2-0 chromic x 2. There was no sinus involvement. Lower # 30 The full thick Muco-periosteal flap was made on the external oblique ridge to avoid the lingual nerve. The flap was reflected to expose the grossly fractured # 30 tooth. The rongeurs was used to remove bone.The lingual plate was p rotected. The tooth was removed with a 301 elevator, the nerve was intact, there was no bleeding. The gross infection was curetted from the socket and the irregular bony socket was adjusted. The bone was trimmed, smoothed and the flap was closed with a few 2-0 chromic sutures. When all the teeth were removed and the I&D completed I inspected the sites to insure all bleeding was controlled. I removed the throat pack and suctioned the throat. Bilateral gauze pressure dressings were placed. All instrument and sponge count was correct. the patient was allowed to awake from the anesthesia. Once full awake the anesthesia tube was removed and the patient was taken to the recovery room with all vital sign stable. The patient tolerated the surgery very well. I will follow the patient in my office, Rx and instructions will be given upon discharge. Surgeon Tyler Gruber, DMD Corporate Associate Attorney none Estimated Blood Loss 5 Findings Consistent with Post-Op Diagnosis Specimens culture of pus from I&D site Description of Procedure Left intraoral I&D of multiply facial space abscess due to abscessed # 14 and 19 L03.211 K12.2 K04.6 CPT 90239 upper CPT 06651 lower I attest to the content of the Intraoperative Record and any orders documented therein. Any exceptions are noted below.
--- NOTE | 2020-11-23 17:35 | Anesthesiology Progress Note ---
Date of Service November 23, 2020 Anesthesia Post Procedure Vital Signs Vital Signs: Temp Pulse Pulse Pulse Resp BP BP 11/23/20 17:30 36.7 C 72 14 127/78 11/23/20 17:20 76 16 139/88 11/23/20 17:13 36.6 C 101 H 18 125/83 11/23/20 15:54 36.8 C 93 H 16 11/23/20 14:56 36.8 C 70 16 11/23/20 06:22 37.5 C 88 16 11/23/20 05:39 72 18 109/60 11/23/20 05:00 76 111/68 11/23/20 04:00 89 124/72 11/23/20 03:26 77 17 127/82 11/23/20 02:31 103 H 134/97 11/23/20 02:01 82 130/83 11/23/20 00:50 65 11/22/20 22:03 36.4 C L 105 H 18 143/89 H BP Pulse Ox 11/23/20 17:30 99 11/23/20 17:20 100 11/23/20 17:13 99 11/23/20 15:54 128/77 100 11/23/20 14:56 109/67 100 11/23/20 06:22 123/81 97 11/23/20 05:39 98 11/23/20 05:00 98 11/23/20 04:00 98 11/23/20 03:26 98 11/23/20 02:31 98 11/23/20 02:01 100 11/23/20 00:50 99 11/22/20 22:03 99 Pain Intensity Left Face: Pain Intensity: 6 Transfer of Care Handoff Completed per policy Notes Mental Status: alert / awake / arousable and participated in evaluation Patient Amnestic to Procedure: Yes Nausea / Vomiting: adequately controlled Pain: adequately controlled Airway Patency, RR, SpO2: stable & adequate BP & HR: stable & adequate Hydration State: stable & adequate Anesthetic Complications: no major complications apparent
--- NOTE | 2020-11-23 17:53 | Anesthesiology Progress Note ---
Date of Service November 23, 2020 Anesthesia Post Procedure Vital Signs Vital Signs: Temp Pulse Pulse Pulse Resp BP BP 11/23/20 17:40 68 14 132/86 11/23/20 17:30 36.7 C 72 14 127/78 11/23/20 17:20 76 16 139/88 11/23/20 17:13 36.6 C 101 H 18 125/83 11/23/20 15:54 36.8 C 93 H 16 11/23/20 14:56 36.8 C 70 16 11/23/20 06:22 37.5 C 88 16 11/23/20 05:39 72 18 109/60 11/23/20 05:00 76 111/68 11/23/20 04:00 89 124/72 11/23/20 03:26 77 17 127/82 11/23/20 02:31 103 H 134/97 11/23/20 02:01 82 130/83 11/23/20 00:50 65 11/22/20 22:03 36.4 C L 105 H 18 143/89 H BP Pulse Ox 11/23/20 17:40 100 11/23/20 17:30 99 11/23/20 17:20 100 11/23/20 17:13 99 11/23/20 15:54 128/77 100 11/23/20 14:56 109/67 100 11/23/20 06:22 123/81 97 11/23/20 05:39 98 11/23/20 05:00 98 11/23/20 04:00 98 11/23/20 03:26 98 11/23/20 02:31 98 11/23/20 02:01 100 11/23/20 00:50 99 11/22/20 22:03 99 Pain Intensity Left Face: Pain Intensity: 6 Transfer of Care Handoff Completed per policy Notes Mental Status: alert / awake / arousable and participated in evaluation Patient Amnestic to Procedure: Yes Nausea / Vomiting: adequately controlled Pain: adequately controlled Airway Patency, RR, SpO2: stable & adequate BP & HR: stable & adequate Hydration State: stable & adequate Anesthetic Complications: no major complications apparent
[2020-11-23] MEDS: MoRPHine SULFATE 2 MG/ML CARP IV PRN (19:32)
[2020-11-24] MEDS: MoRPHine SULFATE 2 MG/ML CARP IV PRN (00:07)
[2020-11-24] MEDS: AMPICILLIN/SULBACTAM SOD 3,000 MG in 0.9 % SODIUM CHLORIDE 100 ML IV SCH ×2 (00:09→05:44)
[2020-11-24] MEDS: NSS + 20MEQ KCL 20 MEQ/1,000 ML BAG IV SCH (06:23)
[2020-11-24] MEDS: FAMOTIDINE 20 MG in SYRINGE 3 ML IV SCH (06:23)
--- NOTE | 2020-11-24 07:14 | CT Scan Report ---
CT SCAN OF THE BRAIN WITHOUT IV CONTRAST CLINICAL HISTORY: Paresthesias. COMPARISON STUDY: No priors. TECHNIQUE: Unenhanced axial CT scan of the brain is performed from the vertex to the skull base. A d ose lowering technique was utilized adhering to the principles of ALARA. FINDINGS: Brain parenchyma: The brain parenchyma is normal in appearance. There is no hemorrhage, mass effect, or evidence of acute territorial ischemia by CT criteria. Ramirez-white matter differentiation is preser consuelo. No extra-axial fluid collection is seen. Ventricles, sulci, cisterns: Normal in configuration. Intracranial vasculature: The visualized intracranial vasculature at the skull base is normal in appe arance. Calvarium: Unremarkable. Sinuses and mastoids: The visualized paranasal sinuses are clear. The mastoid air cells are well pneu matized. Orbits: The bony orbits are grossly intact. IMPRESSION: No acute intracranial abnormality. ACT 112: Negative or not required by law. Electronically signed by: Zeb Price M.D. 11/24/2020 7:13 AM
--- NOTE | 2020-11-24 07:16 | CT Scan Report ---
CT OF THE CERVICAL SPINE WITHOUT CONTRAST CLINICAL HISTORY: paresthesias COMPARISON STUDY: No previous studies for comparison. TECHNIQUE: Helical axial images of the cervical spine were obtained without IV contrast. Sagittal a nd coronal reconstructions were viewed. Automated exposure control was utilized for the study. A do se lowering technique was utilized adhering to the principles of ALARA. FINDINGS: There is reversal of the normal cervical lordosis. Vertebral body heights are maintained. N o acute cervical spine fracture or subluxation is present. There is no prevertebral edema. Facet join ts are intact. Left facial and neck infiltration is partially imaged on this examination. This is be tter depicted on the facial bone CT performed November 23, 2020. Central canal and neural foramen are sub optimally assessed by CT. There is no evidence for significant central canal or neural foraminal sten osis by CT. IMPRESSION: 1. No acute cervical spine fracture or subluxation. 2. Left neck and facial infiltration better depicted on the facial CT performed on November 23, 2020. ACT 112: Negative or not required by law. Electronically signed by: Will Rolon M.D. 11/24/2020 7:15 AM
[2020-11-24 08:05] LABS: Basophils # (auto) 0.01 K/uL (0-0.2); Basophils % (auto) 0.1 %; Hemoglobin 9.6 g/dL (12.0-16.0); Immature Granulocytes # (auto) 0.02 K/uL (0.00-0.02); Immature Granulocytes % (auto) 0.2 %; Lymphocytes # (auto) 1.08 K/uL (1.2-3.4); Lymphocytes % (auto) 8.5 %; Mean Corpuscular Volume 84.3 fL (80-100); Mean Platelet Volume 9.3 fL (7.4-10.4); Monocytes % (auto) 7.9 %; Neutrophils # (auto) 10.54 K/uL (1.4-6.5); Neutrophils % (auto) 83.3 %; Platelet Count 297 K/uL (130-400); RDW Standard Deviation 49.3 fL (36.4-46.3); Red Blood Count 3.56 M/uL (4.2-5.4); White Blood Count 12.65 K/uL (4.8-10.8)
--- NOTE | 2020-11-24 09:17 | Oral/Maxillofacial Progress Nt ---
Date of Service November 24, 2020 Post Op infection evaluation The infected area is now healing very well. Swelling is gone and the tissue is healing well No drainage is noted. Drain was removed. Cultures were reviewed. Infection has responded very well to the antibiotics and the I and D. I requested that the patient continue with massage, heat and wound care. At this time the area is well healed and responded well to treatment. She can Discharged from ora surgery point of view I will follow in office Rx Augmentin, Vicodin and Zofran Assessment & Plan Admission and Anticipated Discharge Date Admission Date: November 23, 2020 Results & Data ([facility]) Vital Signs (Past 12 Hours) Vital Signs Temp Pulse Resp BP BP Pulse Ox 11/24/20 08:26 36.9 C 73 16 119/74 99 11/24/20 02:51 36.8 C 90 16 104/62 99 11/23/20 22:52 37.0 C 98 H 18 117/65 97 PG Care Time/CCT Total # of Minutes Spent Total Time Spent with Patient: Total time spent is greater than 50% in coordination of care (as documented) at patient's floor/unit and/or counseling patient: Coding Level of Care Code 46195 Subseq Hosp Care Lvl 1
--- NOTE | 2020-11-24 17:38 | Discharge Summary ---
Date of Service November 24, 2020 Admission HPI Per Admitting Provider The patient is a 30-year-old female with no significant past medical history who presents to the emergency department as noted above. Work-up in the emergency department included a CT scan of the face which showed cellulitis with an abscess. Admission Exam Per Admitting Provider The patient is awake, alert and oriented 3, well developed and well nourished, normocephalic and atraumatic, lying in bed and in no acute distress. HEENT--PERRL, EOMI, mucous membranes and oropharynx dry. Large swelling left lateral mandibular area Neck--supple. No JVD. No bruits. Thyroid normal, trachea midline, no adenopathy. Heart--normal S1 and S2. No murmurs, rubs or gallops. Lungs--clear bilaterally, no respiratory distress, no accessory muscle use. Abdomen--normal bowel sounds and soft. Nontender. Nondistended, no hernias or masses, no organomegaly. Extremities--no cyanosis or clubbing. No edema. Dermatologic--normal skin turgor, normal color, no abnormal lymph nodes, no rash. Neurologic--cranial nerves II through XII grossly intact. Rheumatologic--normal range of motion. Psychiatric--normal affect. Principal Diagnosis Dental abscess Discharge Exam GENERAL : No acute distress EYES: No icterus, gaze conjugate NOSE: No evidence of epistaxis MOUTH: No lesions or candidiasis. Mucosa moist. No evidence of bleeding NECK: Supple LUNGS: CTA B/L, no wheezes, rales or rhonchi HEART: Regular, rate controlled ABDOMEN: Soft, NT, ND, BS Present EXTREMITIES: No LE edema, pedal pulses intact NEURO: A&OX3 Discharge Data Allergies Allergy/AdvReac Type Severity Reaction Status Date / Time No Known Allergies Allergy Unverified 11/23/20 06:32 Consultations 11/23/20 03:06 ED Decision to Admit Stat 11/23/20 05:19 Consult Oromaxillofacial Surgery Routine Procedures Performed Operation Date: 11/23/20 08:20 Actual Procedures p Left Incision and Drainage Submandibular Area(Left) - Tyler Gruber DMD s Extraction 3, 14, and 19(Not Applicable) - Tyler Gruber DMD Ordered Studies 11/23/20 01:28 CT facial bones w con Urgent 11/24/20 06:42 CT cervical spine wo con Stat CT head/brain wo con Stat Hospital Course (1) Cellulitis and abscess of face: Patient started on Unasyn 3 g IV every 6 hours Maxillofacial surgery consulted. Appreciate Dr. Gruber's input Pain well controlled on day of discharge Orders with appointment for follow-up with Dr. Gruber provided by maxillofacial surgery Discharged home on Augmentin for 10 days (2) Dental abscess: Oromaxillary surgery consulted. Appreciate Dr. Gruber's input Surgical I&D with tooth extraction in the OR -POD #1 Discharge home on Augmentin for 10 days Hydrocodone/acetaminophen for pain control as prescribed by Dr. Gruber Zofran for nausea and vomiting as prescribed by Dr. Gruber Outpatient follow-up in the maxillofacial office Total Time Total Time Spent Total Time Spent (In Minutes): 20 minutes Discharge Plan Discharge Items Patient Disposition: Home - Self-Care Reason For Visit: LEFT FACIAL ABSCESS Discharge Diagnosis: facial abscess left side Condition on Discharge: Good Activity: Resume your previous activity Lifting: Gradually increase as tolerated Bathing: No limitations Driving/Machine Use: Resume 1 day after discharge Weightbearing: Full weightbearing Non-emergency contact: Surgeon Call non-emergency contact if: your temperature is above 101.5, your wound has increased redness, your wound has increased drainage and your wound pain has increased Follow-up/Referrals: Tyler Gruber, JADEN [Physician] - PCP,NO [Primary Care Provider] - Diet: Regular Diet Texture: Easy to Chew Diet Comment: advice dite as tolerated Addtl Attending Provider Instructions: You were admitted on 11/23/2020 with a dental abscess. You underwent surgery with Dr. Gruber. He performed incision and drainage and excision of teeth to correct the abscess. elevated white count on admission and while this is still slightly high, it is coming down nicely with treatment. You are being discharged home today self-care. Please take all antibiotics as prescribed and follow oral hygiene recommendations as provided by Dr. Gruber. If you should develop fever or if pain should worsen, please call Dr. Gruber's office immediately or report to the emergency department for further evaluation. Addtl Rate And Cost Analyst Provider Instructions: ADDITIONAL ACTIVITY RECOMMENDATIONS: * [place] teeth after every meal. It is very important to keep your mouth clean to prevent infection. * Starting tonight rinse with the Peridex as directed then 2 x a day * it is very important to keep well hydrated, this prevents fever and possible dry socket pain SPECIAL CARE INSTRUCTIONS: *It is not uncommon that between day 2-4 that your swelling will be at its worst this is very normal, do not be alarmed. * apply heat (hot water bottle or heating pad) for the next two days, as often as possible. * Tomorrow start rinsing your mouth with 1/2 teaspoon salt in 8 ounces warm water. This rinse should be used every 4-6 hours. * You may experience slight nausea. To prevent this, never take your medication on an empty stomach. If nauseated, take small sips of maria eugenia meredith until you feel better; then you may start on applesauce and toast. * Some swelling is common. It should gradually decrease within 4-5 days. * A certain amount of bleeding is to be expected. It is often possible to control mild oozing by placing folded gauze over the area and biting down for 30 minutes. If you are unable to control excessive bleeding, call Dr Gruber at [phone] * You may experience some discomfort for a few days. If pain or swelling increases, Call Dr Gruber * Return to the office for a follow up check up: MondayDECEMBER 03 at 2:30 pm [facility] * If you do not have a follow up appointment please call the office at [phone] and set one up for 10-15 days after your surgery Pending Studies at Discharge: No Stand-Alone Forms: My [facility], Opioid Pain Management, Smoking Cessation Medications and DC Order Prescriptions: Continued amoxicillin-pot clavulanate 875-125 mg tablet 1 tab PO Q12H Qty: 20 RF: 0 hydrocodone-acetaminophen 5-325 mg tablet 1 tab PO Q4H PRN (Reason: pain) Qty: 14 RF: 0 ondansetron HCl 8 mg tablet 8 mg PO Q8H PRN (Reason: nausea and vomiting) Qty: 10 RF: 0 Discharge Orders: Discharge Order (Routine); Ordered 11/24/20 Ordered By: Zeb Lund/Other Patient Handouts: Dental Abscess Admission Data Admit Date/Time: 11/23/20 03:31 Attending Provider: Sylvester Gregory Admit Provider: Lalito Lopez Primary Care Provider: PCP,NO Other Providers: Lalito Lopez ; Tyler Gruber Other Interventions: Discharge Summary Assessment (RN) Last Done: 11/24/20 12:37 Supervising Physician Co-Signing Physician Notes Patient seen and examined on the day of discharge. I agree with the discharge summary by Zeb SIERRA. I have reviewed the chart including labs, imaging and plans for discharge. patient doing well after tooth extraction, pain is reasonably controlled will follow up closely with Dr. Gruber - Facial cellulitis, tooth abscess, s/p tooth extraction d/c on Augmentin x 10 days pain control Coding Level of Care Code D/C DAY MANAGEMENT <30 MINS Diagnoses Cellulitis and abscess of face L03.211; L02.01 Dental abscess K04.7 Time Spent (min) 20
== END 2020-11-24 13:12 | disposition home or self-care (01) ==
LOC: ED 21:57 → INTOOBSV 11-23 03:31 → SUATTDRO 11-23 03:31 → 3E 11-23 03:31
DX: L03.211 Cellulitis of face; K04.7 Periapical abscess without sinus; Z87.891 Personal history of nicotine dependence; K12.2 Cellulitis and abscess of mouth